=== PATIENT | female | born 1995 | race African-American/Black ===

== ENCOUNTER 2024-12-22 20:31 | Emergency (ER) | payer MEDICAID ==
[~2024-12-22] VITALS: Ht 167.6 cm; Wt 60.0 kg
[~2024-12-22 20:31] MED LIST: BENADRYL; CONCERTA; SEROQUEL
[2024-12-22 20:36] VITALS: BP 156/90; PULSE 117; RESP 20; TEMP 37.1; O2SAT 100
== END 2024-12-22 20:39 | disposition left against medical advice (07) ==
LOC: ER 20:31
DX: F41.9 Anxiety disorder, unspecified (principal); Z53.21 Procedure and treatment not carried out due to patient leaving prior to being seen by health care provider

== ENCOUNTER 2024-12-22 20:42 | Emergency (ER) | payer MEDICAID ==
[2024-12-22 20:43] VITALS: PULSE 142; RESP 18; O2SAT 100
== END 2024-12-22 23:30 | disposition left against medical advice (07) ==
LOC: ER 20:42
DX: R41.82 Altered mental status, unspecified (principal); F41.0 Panic disorder [episodic paroxysmal anxiety]; Z53.21 Procedure and treatment not carried out due to patient leaving prior to being seen by health care provider